=== PATIENT | female | born 1985 | race Caucasian/White ===

== ENCOUNTER 2018-03-05 21:09 | Emergency (ER) | payer BC ==
[~2018-03-05] VITALS: Ht 165.1 cm; Wt 66.5 kg
--- NOTE | 2018-03-05 21:21 | NUR ---
N/V/D CENTER ABD PAIN
[2018-03-05 21:40] VITALS: BP 112/57
[2018-03-05] MEDS ORDERED: ONDANSETRON ODT 4 MG ONE (21:43)
--- NOTE | 2018-03-05 21:44 | NUR ---
ERP AT BED SIDE FOR ER EVAL GIVEN ZOFRAN FOR NAUSEA PT UNDERSTOOD POC VSS STABLE
[2018-03-05] MEDS ORDERED: ONDANSETRON ODT 4 MG PO ONE (22:00)
[2018-03-05 22:02] LABS: BASOPHILS # (AUTO) 0.01 x10^3/uL (0-0.1); BASOPHILS % (AUTO) 0 % (0-1); EOSINOPHILS # (AUTO) 0.08 x10^3/uL (0-0.4); EOSINOPHILS % (AUTO) 1 % (1-7); LYMPHOCYTES # (AUTO) 1.37 x10^3/uL (1-3.4); LYMPHOCYTES % (AUTO) 9 % (22-44); MD NO; MEAN CORPUSCULAR HGB CONC 33.2 g/dL (32.4-35.8); MEAN CORPUSCULAR VOLUME 78.5 fL (80-100); MEAN PLATELET VOLUME 9.5 fL (7.4-10.4); MONOCYTES # (AUTO) 1.07 x10^3/uL (0.2-0.8); MONOCYTES % (AUTO) 7 % (2-9); NEUTROPHILS # (AUTO) 13.27 x10^3/uL (1.8-6.8); NEUTROPHILS % (AUTO) 84 % (42-75); PLATELET COUNT 321 x10^3/uL (130-400); RED BLOOD COUNT 5.09 x10^6/uL (3.82-5.3); RED CELL DISTRIBUTION WIDTH 13.9 % (9.6-15.2)
[2018-03-05 22:16] LABS: CHLORIDE 108 mmol/L (98-107)
[2018-03-05 22:24] LABS: ALANINE AMINOTRANSFERASE 26 U/L (12-78); ALBUMIN 3.9 g/dL (3.4-5.0); ALKALINE PHOSPHATASE 72 U/L (45-117); ANION GAP 9 mmol/L (5-15); BILIRUBIN,TOTAL 0.2 mg/dL (0.2-1.0); TOTAL PROTEIN 8.3 g/dL (6.4-8.2)
== END 2018-03-05 23:16 | disposition home or self-care (01) ==
LOC: ED 22:55
DX: K52.29 Other allergic and dietetic gastroenteritis and colitis (principal)
CPT/HCPCS: 36415; 80053; 83690; 84703; 85025; 99283; Q0162